=== PATIENT | female | born 1990 | race Caucasian/White ===

== ENCOUNTER 2018-05-24 03:34 | Emergency (ER) | payer OTHER ==
[2018-05-24] MEDS ORDERED: LIDOCAINE 1% MPF 5 ML VIAL ONE (03:50)
--- NOTE | 2018-05-24 04:34 | EDPHYS ---
Physician Documentation [facility] Name: Gudelia Negron Age: 27 yrs Sex: Female : 1990 Arrival Date: 05/24/2018 Time: 03:36 Bed 7 Private MD: ED Physician Miguel Bañuelos HPI: 05/24 04:28 This 27 yrs old Female presents to ER via EMS with complaints of laceration. rn 04:28 The patient has a laceration occurred at home. The laceration(s) is(are) located on the rn right wrist. Onset: The symptoms/episode began/occurred just prior to arrival. The patient has not experienced similar symptoms in the past. 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 Last tetanus 2 years ago.. 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 - Social history:: Smoking status: Patient uses tobacco products, smokes one pack cigarettes per day. Patient uses alcohol, occasionally. Patient/guardian denies using street drugs. - Ebola Screening: : No symptoms or risks identified at this time. - Family history:: not pertinent. - Hospitalizations: : No recent hospitalization is reported. ROS: 04:28 Constitutional: Negative for fever, chills, and weight loss, MS/Extremity: + laceration rn to right wrist Exam: 04:28 Constitutional: This is a well developed, well nourished patient who is awake, alert, rn and in no acute distress. MS/ Extremity: Pulses equal, no cyanosis. Neurovascular intact. Full, normal range of motion. Equal circumference. + longitudinal superficial laceration to right wrist, does not extend to hand, no vessels/tendon exposed, irregular and jagged border. No active bleeding. Vital Signs: 03:38 BP 117 / 86; Pulse 123; Resp 18 S; Temp 98.4(O); Pulse Ox 98% on R/A; Weight 70.31 kg bb (R); Height 5 ft. 11 in. (180.34 cm) (R); Pain 3/10; 04:47 BP 106 / 85; Pulse 98; Resp 17 S; Pulse Ox 99% on R/A; jd3 03:38 Body Mass Index 21.62 (70.31 kg, 180.34 cm) bb Laceration: 04:31 Wound Repair of 4cm ( 1.6in ) subcutaneous laceration to right wrist. Distal rn neuro/vascular/tendon intact. Anesthesia: Wound infiltrated with 3 mls of 1% lidocaine. Wound prep: Extensive cleansing by nurse, Wound margin revised minimally, Wound debrided minimally, Wound explored extensively. Skin closed with 8 4-0 Prolene using interrupted sutures and sterile technique. Dressed with Neosporin, 4x4's, Kerlix. Patient tolerated well. MDM: 03:37 Patient medically screened. rn 04:31 Differential diagnosis: superficial laceration. Data reviewed: vital signs, nurses rn notes, and as a result, I will discharge patient. Counseling: I had a detailed discussion with the patient and/or guardian regarding: the historical points, exam findings, and any diagnostic results supporting the discharge/admit diagnosis, the need for outpatient follow up, to return to the emergency department if symptoms worsen or persist or if there are any questions or concerns that arise at home. Special discussion: I discussed with the patient/guardian in detail that at this point there is no indication for admission to the hospital. It is understood, however, that if the symptoms persist or worsen the patient needs to return immediately for re-evaluation. ED course: Asked patient several times, assures me was accidental, denies suicidal ideation or attempt, story is consistent, and will dc home with suture removal in 14 days.. 05/24 03:38 Order name: Suture Tray at Bedside; Complete Time: 03:44 rn Administered Medications: 04:14 Drug: Lidocaine (1 %) 1 vials {Note: administered by Dr. Bañuelos..} Volume: 5 ml; Route: jd3 Infiltration; 04:48 Follow up: Response: No adverse reaction jd3 Disposition: 05/24/18 04:34 Discharged to Home. Impression: Superficial laceration of right wrist. - Condition is Stable. - Discharge Instructions: Laceration Care, Adult. - Medication Reconciliation Form, Thank You Letter, Antibiotic Education, Prescription Opioid Use form. - Follow up: Private Physician; When: 14 days; Reason: Wound Recheck, Staple/Suture removal. - Problem is new. - Symptoms have improved. Signatures: Rachel Valentin RN RN Miguel Ya MD MD rn Davies, SARAI Marrero RN jd3 Corrections: (The following items were deleted from the chart) 04:59 04:34 05/24/2018 04:34 Discharged to Home. Impression: Superficial laceration of right jd3 wrist. Condition is Stable. Forms are Medication Reconciliation Form, Thank You Letter, Antibiotic Education, Prescription Opioid Use. Follow up: Private Physician; When: 14 days; Reason: Wound Recheck, Staple/Suture removal. Problem is new. Symptoms have improved. rn
--- NOTE | 2018-05-24 04:34 | ER ---
Nurse's Notes [facility] Name: Gudelia Negron Age: 27 yrs Sex: Female : 1990 Arrival Date: 05/24/2018 Time: 03:36 Bed 7 Private MD: Diagnosis: Superficial laceration of right wrist Presentation: 05/24 03:36 Presenting complaint: EMS states: they were toned out for report of pt with laceration bb to right hand. Transition of care: patient was not received from another setting of care. Onset of symptoms was May 24, 2018. Risk Assessment: Do you want to hurt yourself or someone else? Patient reports no desire to harm self or others. Initial Sepsis Screen: Does the patient meet any 2 criteria? No. Patient's initial sepsis screen is negative. Does the patient have a suspected source of infection? No. Patient's initial sepsis screen is negative. Care prior to arrival: None. 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 - Social history:: Smoking status: Patient uses tobacco products, smokes one pack cigarettes per day. Patient uses alcohol, occasionally. Patient/guardian denies using street drugs. - Ebola Screening: : No symptoms or risks identified at this time. - Family history:: not pertinent. - Hospitalizations: : No recent hospitalization is reported. Screenin:39 Abuse screen: Denies threats or abuse. Nutritional screening: No deficits noted. jd3 Tuberculosis screening: No symptoms or risk factors identified. Fall Risk Ambulatory Aid- None/Bed Rest/Nurse Assist (0 pts). Gait- Normal/Bed Rest/Wheelchair (0 pts) Mental Status- Oriented to own ability (0 pts). Total De Souza Fall Scale indicates No Risk (0-24 pts). Assessment: 03:38 General: Appears in no apparent distress. uncomfortable, Behavior is calm, cooperative, jd3 appropriate for age. Pain: Complains of pain in right wrist Quality of pain is described as aching. Neuro: Level of Consciousness is awake, alert, obeys commands, Oriented to person, place, time, situation, Appropriate for age. Cardiovascular: Capillary refill < 3 seconds Patient's skin is warm and dry. Respiratory: Airway is patent Respiratory effort is even, unlabored, Respiratory pattern is regular, symmetrical. GI: No signs and/or symptoms were reported involving the gastrointestinal system. : No signs and/or symptoms were reported regarding the genitourinary system. EENT: No signs and/or symptoms were reported regarding the EENT system. Derm: Skin is intact, Skin is dry, Skin is normal, Skin temperature is warm. Musculoskeletal: Circulation, motion, and sensation intact. Range of motion: intact in all extremities. Injury Description: Laceration sustained to right wrist is clean, 0.5 to 2.5 cm long, not bleeding, a small amount of bleeding noted at this time. 04:45 Reassessment: Patient appears in no apparent distress at this time. Patient and/or jd3 family updated on plan of care and expected duration. Pain level reassessed. Patient is alert, oriented x 3, equal unlabored respirations, skin warm/dry/pink. Vital Signs: 03:38 BP 117 / 86; Pulse 123; Resp 18 S; Temp 98.4(O); Pulse Ox 98% on R/A; Weight 70.31 kg bb (R); Height 5 ft. 11 in. (180.34 cm) (R); Pain 3/10; 04:47 BP 106 / 85; Pulse 98; Resp 17 S; Pulse Ox 99% on R/A; jd3 03:38 Body Mass Index 21.62 (70.31 kg, 180.34 cm) bb ED Course: 03:36 Patient arrived in ED. al2 03:37 Triage completed. bb 03:37 Miguel Bañuelos MD is Attending Physician. rn 03:38 Janes Candelario RN is Primary Nurse. jd3 03:38 Arm band placed on Patient placed in an exam room, on a stretcher, on pulse oximetry. bb 03:40 Patient has correct armband on for positive identification. Bed in low position. Call jd3 light in reach. Side rails up X 1. 04:44 Assist provider with laceration repair on right wrist that was between 2.6 to 7.5 cm jd3 using sutures. Set up tray. Performed by Miguel Bañuelos MD Dressed with 4X4s, Kerlix, Neosporin, Patient tolerated well. Patient did not have IV access during this emergency room visit. Administered Medications: 04:14 Drug: Lidocaine (1 %) 1 vials {Note: administered by Dr. Bañuelos..} Volume: 5 ml; Route: jd3 Infiltration; 04:48 Follow up: Response: No adverse reaction jd3 Outcome: 04:34 Discharge ordered by . rn 04:45 Discharged to home ambulatory. jd3 04:45 Condition: stable 04:45 Discharge instructions given to patient, Instructed on discharge instructions, follow up and referral plans. Demonstrated understanding of instructions, follow-up care. 04:59 Patient left the ED. jd3 Signatures: Rachel Valentin RN Miguel Ashton MD MD rn Davies, Jonathon, RN RN jd3 Love, Angelica al2 Corrections: (The following items were deleted from the chart) 04:47 04:44 No provider procedures requiring assistance completed. jd3 jd3
[2018-05-24 05:04] VITALS: TEMP 98.4
[2018-05-24 05:05] VITALS: BP 106/85; O2SAT 99
== END 2018-05-24 04:59 | disposition home or self-care (01) ==
LOC: ER 03:34
PROC: 0JQG0ZZ Repair Right Lower Arm Subcutaneous Tissue and Fascia, Open Approach (ICD-10-PCS; principal; 2018-05-24)
DX: S61.511A Laceration without foreign body of right wrist, initial encounter (principal); W25.XXXA Contact with sharp glass, initial encounter; Y93.89 Activity, other specified; Y92.009 Unspecified place in unspecified non-institutional (private) residence as the place of occurrence of the external cause; F41.9 Anxiety disorder, unspecified; F90.9 Attention-deficit hyperactivity disorder, unspecified type; F17.210 Nicotine dependence, cigarettes, uncomplicated
CPT/HCPCS: 99284

== ENCOUNTER 2018-08-19 18:35 | Emergency (ER) | payer OTHER, SELFPAY ==
--- NOTE | 2018-08-19 19:14 | ER ---
Nurse's Notes [facility] Name: Gudelia Negron Age: 27 yrs Sex: Female : 1990 Arrival Date: 08/19/2018 Time: 18:40 Bed 23 Private MD: Diagnosis: Toxic effect of ethanol Presentation: 08/19 18:40 Presenting complaint: EMS states: reports and anxiety. BP 102/78, RR 18, W[place] 102, 02 ca1 Sat 100 RA. Transition of care: patient was not received from another setting of care. Onset of symptoms was August 19, 2018. Care prior to arrival: None. 18:40 Method Of Arrival: EMS: [facility] ca1 18:40 Acuity: KAREN 3 ca1 18:40 Care prior to arrival: IV initiated. 18 GA, in the right antecubital area. ca1 18:40 Risk Assessment: Do you want to hurt yourself or someone else? Patient reports no ca1 desire to harm self or others. 18:40 Initial Sepsis Screen: Does the patient meet any 2 criteria? No. Patient's initial ca1 sepsis screen is negative. Does the patient have a suspected source of infection? No. Patient's initial sepsis screen is negative. Triage Assessment: 18:43 General: Appears in no apparent distress. Behavior is combative, crying. ca1 18:45 General: Smells of alcohol. ca1 18:56 Pain: Complains of pain in chest Pain currently is 10 out of 10 on a pain scale. 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 - Social history:: Smoking status: Patient uses tobacco products, smokes one pack cigarettes per day. - Ebola Screening: : No symptoms or risks identified at this time. Screenin:08 Abuse screen:. Nutritional screening: No deficits noted. Tuberculosis screening: No ca1 symptoms or risk factors identified. Fall Risk None identified. Assessment: 18:40 General: Appears in no apparent distress. Behavior is combative, crying, Smells of ca1 alcohol. General: Life Educator reports pt from [facility] for DWI. . Pain: Complains of pain in chest Pain currently is 10 out of 10 on a pain scale. Neuro: Level of Consciousness is awake, alert, Oriented to person, place, time, situation. Cardiovascular: Heart tones S1 S2 present Capillary refill < 3 seconds Patient's skin is warm and dry. Respiratory: Airway is patent Respiratory effort is even, unlabored, Respiratory pattern is regular, symmetrical, Breath sounds are clear bilaterally. GI: No signs and/or symptoms were reported involving the gastrointestinal system. : No signs and/or symptoms were reported regarding the genitourinary system. EENT: No signs and/or symptoms were reported regarding the EENT system. Derm: Skin is intact, Skin is pink, warm \T\ dry. Musculoskeletal: Circulation, motion, and sensation intact. Capillary refill < 3 seconds. 19:00 Reassessment: Pt calmed down with Dr. Mojica during assessment. Answers questions ca1 appropriately. Pt states to say what is necessary to not to go back in [facility]. 19:20 Reassessment: Pt consented to Legal Blood Draw, Motorized Squad Sergeant at bedside. ca1 19:30 Reassessment: Patient appears in no apparent distress at this time. Patient is alert, ca1 oriented x 3, equal unlabored respirations, skin warm/dry/pink. Pt no longer physically combative. Vital Signs: 18:48 BP 121 / 92; Pulse 108; Resp 18; Temp 98(O); Pulse Ox 100% on R/A; Weight 80.29 kg; ca1 Height 5 ft. 11 in. (180.34 cm); Pain 10/10; 18:48 Body Mass Index 24.69 (80.29 kg, 180.34 cm) ca1 ED Course: 18:40 Patient arrived in ED. ca1 18:42 Triage completed. ca1 18:43 Arm band placed on right wrist. ca1 18:45 Ella Raya, RN is Primary Nurse. ca1 18:45 Patient has correct armband on for positive identification. Bed in low position. Call ca1 light in reach. Side rails up X2. Police Officers at bedside. 18:45 Pulse ox on. NIBP on. Warm blanket given. ca1 18:45 Maintain EMS IV. Dressing intact. Good blood return noted. Site clean \T\ dry. Gauge \T\ ca 1 site: G18 \T\ RAC. 18:55 Brayan Mojica MD is Attending Physician. gs 19:32 No provider procedures requiring assistance completed. IV discontinued, intact, ca1 bleeding controlled, No redness/swelling at site. Pressure dressing applied. Administered Medications: No medications were administered Outcome: 19:14 Discharge ordered by . gs 19:32 Discharged to home via wheelchair, with Police Officers. ca1 19:32 Condition: stable 19:32 Discharge instructions given to Life Educator Ravi. Instructed on discharge instructions, Demonstrated understanding of instructions. 19:38 Patient left the ED. ca1 Signatures: Brayan Mojica MD MD Acob, Ella RN RN ca1 Corrections: (The following items were deleted from the chart) 18:43 18:40 Presenting complaint: EMS states: reports and chest pain. BP 102/78, RR 18, ca1 WV 102, 02 Sat 100 RA. ca1 18:56 18:48 BP 121 / 92; Pulse 108bpm; Resp 18bpm; Pulse Ox 100% RA; ca1 ca1 19:32 18:56 Care prior to arrival: IV initiated. 18 GA, in the right antecubital area, ca1 ca1
--- NOTE | 2018-08-19 19:14 | EDPHYS ---
Physician Documentation [facility] Name: Gudelia Negron Age: 27 yrs Sex: Female : 1990 Arrival Date: 08/19/2018 Time: 18:40 Bed 23 Private MD: ED Physician Brayan Mojica HPI: 08/19 19:00 This 27 yrs old Female presents to ER via EMS with complaints of anxiety. gs 19:02 The patient presents to the emergency department with anxiety, a history of substance gs abuse, Type: vodka. Onset: The symptoms/episode began/occurred acutely, today. Associated signs and symptoms: Pertinent negatives: abdominal pain, chest pain, hallucinations, homicidal ideation, paranoia, shortness of breath, suicide ideation. Severity of symptoms: At their worst the symptoms were moderate in the emergency department the symptoms are unchanged. The patient has experienced similar episodes in the past. pt is arrested for dui, here for blood draw and sense of anxiety. 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 - Social history:: Smoking status: Patient uses tobacco products, smokes one pack cigarettes per day. - Ebola Screening: : No symptoms or risks identified at this time. ROS: 19:10 All other systems are negative. gs Exam: 19:10 Head/Face: Normocephalic, atraumatic. Eyes: Pupils equal round and reactive to light, gs extra-ocular motions intact. Lids and lashes normal. Conjunctiva and sclera are non-icteric and not injected. Cornea within normal limits. Periorbital areas with no swelling, redness, or edema. ENT: Nares patent. No nasal discharge, no septal abnormalities noted. Tympanic membranes are normal and external auditory canals are clear. Oropharynx with no redness, swelling, or masses, exudates, or evidence of obstruction, uvula midline. Mucous membranes moist. Neck: Trachea midline, no thyromegaly or masses palpated, and no cervical lymphadenopathy. Supple, full range of motion without nuchal rigidity, or vertebral point tenderness. No Meningismus. Chest/axilla: Normal chest wall appearance and motion. Nontender with no deformity. No lesions are appreciated. Cardiovascular: Regular rate and rhythm with a normal S1 and S2. No gallops, murmurs, or rubs. Normal PMI, no JVD. No pulse deficits. Respiratory: Lungs have equal breath sounds bilaterally, clear to auscultation and percussion. No rales, rhonchi or wheezes noted. No increased work of breathing, no retractions or nasal flaring. Abdomen/GI: Soft, non-tender, with normal bowel sounds. No distension or tympany. No guarding or rebound. No evidence of tenderness throughout. Back: No spinal tenderness. No costovertebral tenderness. Full range of motion. Skin: Warm, dry with normal turgor. Normal color with no rashes, no lesions, and no evidence of cellulitis. MS/ Extremity: Pulses equal, no cyanosis. Neurovascular intact. Full, normal range of motion. Neuro: Awake and alert, GCS 15, oriented to person, place, time, and situation. Cranial nerves II-XII grossly intact. Motor strength 5/5 in all extremities. Sensory grossly intact. Cerebellar exam normal. Normal gait. 19:10 Constitutional: The patient appears alert, awake, anxious. 19:10 Neuro: Gait: is steady, mild difficulty is intoxicated but doesn't fall. 19:10 Psych: Behavior/mood is Vital Signs: 18:48 BP 121 / 92; Pulse 108; Resp 18; Temp 98(O); Pulse Ox 100% on R/A; Weight 80.29 kg; ca1 Height 5 ft. 11 in. (180.34 cm); Pain 10/10; 18:48 Body Mass Index 24.69 (80.29 kg, 180.34 cm) ca1 MDM: 18:55 Patient medically screened. gs 19:10 Data reviewed: vital signs, nurses notes. 19:19 ED course: pt dc told officer she may want to hurt herself. officer stated they are gs taking to to [facility] with [facility]. Administered Medications: No medications were administered Disposition: 08/19/18 19:14 Discharged to Home. Impression: Toxic effect of ethanol. - Condition is Stable. - Discharge Instructions: Alcohol Intoxication. - Medication Reconciliation Form, Thank You Letter, Antibiotic Education, Prescription Opioid Use form. - Follow up: Private Physician; When: 2 - 3 days; Reason: Re-evaluation by your physician. Signatures: Brayan Mojica MD MD gs Dorota, Ella RN RN ca1 Corrections: (The following items were deleted from the chart) 19:38 19:14 08/19/2018 19:14 Discharged to Home. Impression: Toxic effect of ethanol. ca1 Condition is Stable. Forms are Medication Reconciliation Form, Thank You Letter, Antibiotic Education, Prescription Opioid Use. Follow up: Private Physician; When: 2 - 3 days; Reason: Re-evaluation by your physician. gs
== END 2018-08-19 19:38 | disposition home or self-care (01) ==
LOC: ER 18:35
DX: T51.0X1A Toxic effect of ethanol, accidental (unintentional), initial encounter (principal); F41.9 Anxiety disorder, unspecified; F90.9 Attention-deficit hyperactivity disorder, unspecified type; F31.9 Bipolar disorder, unspecified; F20.9 Schizophrenia, unspecified; F17.210 Nicotine dependence, cigarettes, uncomplicated
CPT/HCPCS: 99284